=== PATIENT | female | born 1960 | race Caucasian/White ===

== ENCOUNTER 2017-03-23 09:09 | Emergency (ER) | payer OTHER ==
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
[2017-03-23] MEDS ORDERED: TORADOL IM ONE (17:06)
[2017-03-23] MEDS ORDERED: FLEXERIL PO ONE (17:06)
[2017-03-23 19:03] VITALS: BP 152/76
== END 2017-03-23 19:04 | disposition home or self-care (01) ==
LOC: ED 09:09
DX: S16.1XXA Strain of muscle, fascia and tendon at neck level, initial encounter (principal); M25.511 Pain in right shoulder; Z79.82 Long term (current) use of aspirin; I10 Essential (primary) hypertension; E11.9 Type 2 diabetes mellitus without complications; D50.9 Iron deficiency anemia, unspecified; R56.9 Unspecified convulsions; V89.2XXA Person injured in unspecified motor-vehicle accident, traffic, initial encounter; Y93.89 Activity, other specified; Y92.89 Other specified places as the place of occurrence of the external cause; Y99.8 Other external cause status
CPT/HCPCS: 73030; 96372; 99283; J1885

== ENCOUNTER 2018-06-24 01:08 | Emergency (ER) | payer OTHER ==
[2018-06-24] MEDS ORDERED: FLEXERIL PO ONE (06:09)
[2018-06-24] MEDS ORDERED: FLEXERIL ONE (06:09)
[2018-06-24] MEDS ORDERED: ULTRAM ONE (06:09)
[2018-06-24] MEDS ORDERED: ULTRAM PO ONE (06:09)
--- NOTE | 2018-06-24 06:48 | Emergency Department Report ---
ED General Adult HPI - General Chief complaint: Extremity Problem,Nontraumatic Stated complaint: RIGHT SIDE PAIN/FOOT PAIN Time Seen by Provider: 06/24/18 06:20 Source: patient Mode of arrival: Ambulatory Limitations: No Limitations - History of Present Illness Initial comments: Patient's a 58-year-old female with a history of diabetes and hypertension p resents for left foot pain with intermittent swelling patient states this is a chronic problem for the last 2+ years status is on NSAIDs patient has PCP Dr. Joe by her she can see Dr. Joe for another 2 weeks pain is described as 5/10 and aching with intermittent swelling pain is relieved by rest and elevation pain is exacerbated by overuse patient has not been diagnosed with diabetic neuropathy patient is told to baseline per patient patient denies injury or trauma patient requested pain medication. Onset/Timin -: year(s) Location: upper extremity, lower extremity Radiation: non-radiation Severity scale (0 -10): 5 Quality: aching Consistency: intermittent Improves with: rest Worsens with: movement Associated Symptoms: denies other symptoms Treatments Prior to Arrival: none - Related Data Home Medications Medication Instructions Recorded Confirmed Last Taken Aspirin [Aspirin BABY CHEW TAB] 81 mg PO QDAY 06/13/14 01/17/17 1 Day Ago ~01/15/17 81mg Previous Rx's Medication Instructions Recorded Last Taken Type Lisinopril [Zestril] 40 mg PO DAILY #30 tablet 01/17/17 Unknown Rx metFORMIN [Glucophage] 1,000 mg PO BID #60 tablet 01/17/17 Unknown Rx Cyclobenzaprine [Flexeril] 10 mg PO TID PRN 4 Days #12 tablet 03/23/17 Unknown Rx Ibuprofen [Motrin] 600 mg PO Q8H PRN 3 Days #9 tablet 03/23/17 Unknown Rx Ibuprofen 800 mg PO TID PRN #30 tablet 06/24/18 Unknown Rx Menthol/Camphor [[place] 1 applicatio TP QID PRN #1 tube 06/24/18 Unknown Rx Ointment] predniSONE [Deltasone] 40 mg PO QDAY 5 Days #10 tab 06/24/18 Unknown Rx Allergies Allergy/AdvReac Type Severity Reaction Status Date / Time No Known Allergies Allergy Unverified 02/06/14 20:16 ED Review of Systems ROS: Stated complaint: RIGHT SIDE PAIN/FOOT PAIN Other details as noted in HPI Constitutional: denies: chills, fever Eyes: denies: eye pain, eye discharge, vision change ENT: denies: ear pain, throat pain Respiratory: denies: cough, shortness of breath, wheezing Cardiovascular: denies: chest pain, palpitations Endocrine: no symptoms reported Gastrointestinal: denies: abdominal pain, nausea, diarrhea Genitourinary: denies: urgency, dysuria, discharge Musculoskeletal: arthralgia, myalgia, other (left shoulder and akash). denies: back pain, joint swelling Skin: denies: rash, lesions Neurological: denies: headache, weakness, paresthesias Psychiatric: denies: anxiety, depression Hematological/Lymphatic: denies: easy bleeding, easy bruising ED Past Medical Hx - Past Medical History Previous Medical History?: Yes Hx Hypertension: Yes Hx Congestive Heart Failure: No Hx Diabetes: Yes Hx Liver Disease: No Hx Sickle Cell Disease: No Hx Seizures: Yes Hx Asthma: No Hx COPD: No Hx HIV: No Additional medical history: Iron deficiency anemia - Surgical History Past Surgical History?: No - Social History Smoking Status: Never Smoker - Medications Home Medications: Home Medications Medication Instructions Recorded Confirmed Last Taken Type Aspirin [Aspirin BABY CHEW TAB] 81 mg PO QDAY 06/13/14 01/17/17 1 Day Ago History ~01/15/17 81mg Lisinopril [Zestril] 40 mg PO DAILY #30 tablet 01/17/17 Unknown Rx metFORMIN [Glucophage] 1,000 mg PO BID #60 tablet 01/17/17 Unknown Rx Cyclobenzaprine [Flexeril] 10 mg PO TID PRN 4 Days #12 tablet 03/23/17 Unknown Rx Ibuprofen [Motrin] 600 mg PO Q8H PRN 3 Days #9 tablet 03/23/17 Unknown Rx Ibuprofen 800 mg PO TID PRN #30 tablet 06/24/18 Unknown Rx Menthol/Camphor [[place] 1 applicatio TP QID PRN #1 tube 06/24/18 Unknown Rx Ointment] predniSONE [Deltasone] 40 mg PO QDAY 5 Days #10 tab 06/24/18 Unknown Rx ED Physical Exam - General Limitations: No Limitations General appearance: alert, in no apparent distress - Head Head exam: Present: atraumatic, normocephalic - Eye Eye exam: Present: normal appearance, PERRL, EOMI Pupils: Present: normal accommodation - ENT ENT exam: Present: normal orophraynx, mucous membranes moist - Neck Neck exam: Present: normal inspection, tenderness, full ROM. Absent: meningismus, lymphadenopathy, thyromegaly - Respiratory Respiratory exam: Present: normal lung sounds bilaterally. Absent: respiratory distress, wheezes, rhonchi, chest wall tenderness - Cardiovascular Cardiovascular Exam: Present: regular rate, normal rhythm. Absent: systolic murmur, diastolic murmur, rubs, gallop - GI/Abdominal GI/Abdominal exam: Present: soft, normal bowel sounds. Absent: distended, tenderness, rebound, bruit, hernia - Rectal Rectal exam: Present: deferred - Extremities Exam Extremities exam: Present: normal inspection, full ROM, tenderness (left lateral ankle and shoulders ), normal capillary refill. Absent: pedal edema, joint swelling, calf tenderness - Expanded Upper Extremity Exam Left Shoulder Exam: Absent: full ROM, tenderness, swelling, abrasion, laceration, ecchymosis, deformity, crepidus, dislocation, erythema, tenderness over AC joint Upper Arm exam: Present: normal inspection, full ROM. Absent: tenderness Elbow exam: Present: normal inspection, full ROM. Absent: tenderness Forearm Wrist exam: Present: normal inspection, full ROM. Absent: tenderness Neuro motor exam: Present: wrist extension intact, thumb opposition intact, thumb IP flexion intact, thumb adduction intact, fingers 2-5 abduction intact Neurosensory exam: Present: 2-point discrimination, other Vascular: Present: normal capillary refill, radial pulse, brachial pulse, ulnar pulse. Absent: vascular compromise, pulse deficit radial art, pulse deficit ulnar art, pulse deficit brachial art - Back Exam Back exam: Present: normal inspection, full ROM. Absent: tenderness, CVA tenderness (R), CVA tenderness (L), muscle spasm, paraspinal tenderness, vertebral tenderness, rash noted - Neurological Exam Neurological exam: Present: alert, oriented X3, CN II-XII intact, normal gait, reflexes normal. Absent: motor sensory deficit - Psychiatric Psychiatric exam: Present: normal affect, normal mood - Skin Skin exam: Present: warm, dry, intact, normal color. Absent: rash ED Course Vital Signs 06/24/18 01:24 Temperature 98.4 F Pulse Rate 77 Respiratory 18 Rate Blood Pressure 157/77 O2 Sat by Pulse 100 Oximetry Critical care attestation.: If time is entered above; I have spent that time in minutes in the direct care of this critically ill patient, excluding procedure time. ED Disposition Clinical Impression: Arthralgia Qualifiers: Joint pain location: unspecified Qualified Code(s): M25.50 - Pain in unspecified joint Disposition: [id number] HOME UNDER HOME HLTH Is pt being admited?: No Does the pt Need Aspirin: No Condition: Stable Instructions: Arthralgia (ED) Prescriptions: predniSONE [Deltasone] 40 mg PO QDAY 5 Days #10 tab Ibuprofen 800 mg PO TID PRN #30 tablet PRN Reason: pain Menthol/Camphor [[place] Ointment] 1 applicatio TP QID PRN #1 tube PRN Reason: pain Referrals: [facility] [Outside] - 3-5 Days Forms: Work/School Release Form(ED) Time of Disposition: 07:02
[2018-06-24 07:16] VITALS: BP 142/72
== END 2018-06-24 07:15 | disposition home health service (06) ==
LOC: ED 01:08
DX: M25.572 Pain in left ankle and joints of left foot (principal); M25.512 Pain in left shoulder; I10 Essential (primary) hypertension; E11.9 Type 2 diabetes mellitus without complications; Z79.82 Long term (current) use of aspirin
CPT/HCPCS: 99282

== ENCOUNTER 2021-01-05 02:31 | Emergency (ER) | payer OTHER ==
[2021-01-05 02:41] VITALS: BP 189/80
== END 2021-01-05 05:57 | disposition left against medical advice (07) ==
LOC: ED 02:31
DX: R51.9 Headache, unspecified (principal); Z53.21 Procedure and treatment not carried out due to patient leaving prior to being seen by health care provider